=== PATIENT | female | born 1980 | race Caucasian/White ===

== ENCOUNTER → 2023-06-26 | Outpatient (CLI) | payer OTHER, SELFPAY ==
--- NOTE | 2023-06-26 14:27 | NEURO ---
NCS and/or EMG Patient Report Ordering Doctor: Oswaldo Agustin DATE OF SERVICE: 06/26/23 Lala presents for electrodiagnostic testing of the upper limbs. She has complaints of neck pain with intermittent numbness and tingling in the right arm. Electrodiagnostic findings: Median motor nerve demonstrates normal distal latency, amplitude and conduction velocity bilaterally. Normal ulnar motor response bilaterally. Normal median and ulnar F?waves. Sensory responses are within normal limits. Needle EMG testing was performed to the upper limbs. All muscles tested showed no evidence of denervation with normal motor unit action potentials. Electrodiagnostic impression: This is a normal electrodiagnostic study of the upper limbs. There is no electrodiagnostic evidence for peripheral neuropathy, including carpal tunnel syndrome. There is no electrodiagnostic evidence for cervical radiculopathy. Multi Select Codes Neurology Neurology Interp Codes: 91147-04 Musc test done w/n test comp (interp) (2) and 19889-02 Nrv cndj test 13/> studies (interp)
== END | disposition home or self-care (01) ==
LOC: PSN 13:33
PROVIDERS: PCP Family Medicine; Referring Provider Orthopaedic Surgery; Visit Provider Orthopaedic Surgery
DX: M54.12 Radiculopathy, cervical region (principal); G90.9 Disorder of the autonomic nervous system, unspecified; M48.02 Spinal stenosis, cervical region
CPT/HCPCS: 95886; 95913